=== PATIENT | male | born 1960 | race Caucasian/White ===

== ENCOUNTER 2022-08-28 06:19 | Day surgery (SDC) | payer MEDICAID ==
[~2022-08-28] VITALS: Ht 177.8 cm; Wt 79.4 kg
[2022-08-28] MEDS ORDERED: SIMETHICONE 40 MG/0.6 ML ML ONE (07:18)
[2022-08-28] MEDS ORDERED: MIDAZOLAM HCL 5 MG/5 ML VIAL ONE (07:19)
[2022-08-28] MEDS ORDERED: fentaNYL CITRATE/PF 100 MCG/2 ML AMP ONE ×2 (07:19→07:53)
[2022-08-28] MEDS ORDERED: DIPHENHYDRAMINE INJ 50 MG/ML VIAL ONE (07:53)
[2022-08-28 11:52] VITALS: BP_SYST 136
== END 2022-08-28 09:30 | disposition home or self-care (01) ==
LOC: SDS 06:19 → SMU 06:20 → SDS 09:30
PROVIDERS: ATTEND Internal Medicine
DX: Z12.11 Encounter for screening for malignant neoplasm of colon (principal); M19.90 Unspecified osteoarthritis, unspecified site; K57.30 Diverticulosis of large intestine without perforation or abscess without bleeding; K64.8 Other hemorrhoids; Z87.891 Personal history of nicotine dependence; Z79.899 Other long term (current) drug therapy
CPT/HCPCS: 45378; 99152; G0378; J1200; J2250; J3010